=== PATIENT | female | born 1975 | race Caucasian/White ===

== ENCOUNTER → 2024-06-04 11:23 | Outpatient (REF) | payer BC, SELFPAY | LOC: WDC 11:23 | PROVIDERS: ATTENDING PHYSICIAN Family Medicine | DX: Z12.31 Encounter for screening mammogram for malignant neoplasm of breast (principal) | CPT/HCPCS: 77063; 77067 ==

== ENCOUNTER → 2025-02-04 12:30 | Outpatient (REF) | payer BC, SELFPAY | LOC: DHSLP 12:30 | PROVIDERS: ATTENDING PHYSICIAN Family Medicine | DX: G47.19 Other hypersomnia (principal); R06.83 Snoring; R53.83 Other fatigue | CPT/HCPCS: 95806 ==

== ENCOUNTER → 2025-06-13 13:39 | Outpatient (REF) | payer BC, SELFPAY | LOC: WDC 13:39 | PROVIDERS: ATTENDING PHYSICIAN Family Medicine | DX: Z12.31 Encounter for screening mammogram for malignant neoplasm of breast (principal) | CPT/HCPCS: 77063; 77067 ==